=== PATIENT | male | born 1965 | race Caucasian/White ===

== ENCOUNTER 2016-07-05 20:41 | Emergency (ER) | payer OTHER ==
[~2016-07-05 20:41] MED LIST: ADDERALL 10 MG10 M1 PO; AFRIN15 M1; AUGMENTIN875 M1 PO; LORTAB 5-325 M1 EACH; MOTRIN IB200 M1 PO; NAPROSYN500 MG PO; NO MEDICATIONS; NORCO 5/325 TAB1 TAB PO; ULTRAM PO; ZYRTEC5 M2 PO
== END 2016-07-05 22:34 | disposition home or self-care (01) ==
LOC: SED 20:41
DX: T43.621A Poisoning by amphetamines, accidental (unintentional), initial encounter (principal); T39.1X1A Poisoning by 4-Aminophenol derivatives, accidental (unintentional), initial encounter; R51 Headache; F19.10 Other psychoactive substance abuse, uncomplicated; Z88.0 Allergy status to penicillin; Z87.891 Personal history of nicotine dependence
CPT/HCPCS: 99282